=== PATIENT | male | born 1980 | race Caucasian/White ===

== ENCOUNTER 2018-12-12 18:26 | Emergency (ER) | payer SELFPAY ==
[~2018-12-12] VITALS: Ht 175.3 cm; Wt 65.8 kg
--- NOTE | 2018-12-12 18:57 | Emergency Room Report ---
History of Present Illness General Chief Complaint: Lower Extremity Injury Source: Patient Present Illness HPI 38-year-old male with no symptom past medical history brought in by [employer] for medical clearance. Patient reports of several days of bilateral feet pain and skin peeling. Denies fever, chills, shortness of breath, palpitation, abdominal pain, nausea vomiting. Eczema and ulceration of both feet noted turning into cellulitis. Patient will be treated with Rocephin and ibuprofen. Send and cleared to go to retirement Keflex and ibuprofen. Allergies: Coded Allergies: No Known Allergies (Unverified , 12/12/18) Patient History Past Medical History: see triage record Past Surgical History: unable to obtain Pertinent Family History: none Immunizations: UTD Reviewed Nursing Documentation: PMH: Agreed; PSxH: Agreed Nursing Documentation-PMH Past Medical History: No History, Except For History Of Psychiatric Problem: Yes - bipolar Review of Systems All Other Systems: negative except mentioned in HPI Physical Exam Vital Signs Date Time Temp Pulse Resp B/P (MAP) Pulse Ox O2 Delivery O2 Flow Rate FiO2 12/12/18 18:34 98.1 104 19 126/70 (88) 93 Room Air Sp02 EP Interpretation: reviewed, normal General Appearance: no apparent distress, alert, GCS 15, non-toxic, other - Disheveled Head: normocephalic, atraumatic Eyes: bilateral eye normal inspection, bilateral eye PERRL ENT: normal ENT inspection, hearing grossly normal, normal pharynx, no angioedema Neck: full range of motion, supple, thyroid normal, no meningismus, supple/symm /no masses Respiratory: chest non-tender, lungs clear, normal breath sounds, no rhonchi, no retraction, no wheezing, speaking full sentences Cardiovascular #1: regular rate, rhythm, no edema, no murmur, normal capillary refill Cardiovascular #2: 2+ dorsalis pedis (R), 2+ dorsalis pedis (L) Gastrointestinal: normal bowel sounds, non tender, soft, non-distended, no guarding, no rebound Rectal: deferred Genitourinary: no CVA tenderness Musculoskeletal: gait/station normal, normal range of motion, non-tender, no calf tenderness Neurologic: alert, oriented x3, responsive, motor strength/tone normal, sensory intact, speech normal Psychiatric: judgement/insight normal, memory normal, mood/affect normal, no suicidal/homicidal ideation Skin: other - Cellulitis bilateral feet Lymphatic: no adenopathy Medical Decision Making PA Attestation All my diagnosis and treatment plans were reviewed ad discussed with my supervising physician Dr. Barrios Diagnostic Impression: Primary Impression: Cellulitis of both feet ER Course 38-year-old male with no symptom past medical history brought in by [employer] for medical clearance. Patient reports of several days of bilateral feet pain and skin peeling. Denies fever, chills, shortness of breath, palpitation, abdominal pain, nausea vomiting. Eczema and ulceration of both feet noted turning into cellulitis. Patient will be treated with Rocephin and ibuprofen. Send and cleared to go to retirement Keflex and ibuprofen. Ddx considered but are not limited to : Cellulitis, DVT, superficial infection, abscess Vital signs: are WNL, pt. is afebrile H&PE are most consistent with: Cellulitis ORDERS: Keflex, ibuprofen ED INTERVENTIONS: Rocephin, ibuprofen DISCHARGE: At this time pt. is stable for d/c to home. Will provide printed patient care instructions, and any necessary prescriptions. Care plan and follow up instructions have been discussed with the patient prior to discharge. Patient was cleared to go to retirement, follow-up with primary care provider. If worsening symptoms return to the emergency room. Last Vital Signs Date Time Temp Pulse Resp B/P (MAP) Pulse Ox O2 Delivery O2 Flow Rate FiO2 12/12/18 18:34 98.1 104 19 126/70 (88) 93 Room Air Disposition: HOME, SELF-CARE Condition: Stable Scripts Ibuprofen (Ibu) 800 Mg Tablet 800 MG PO BID, #14 TAB Prov: Joy Chong 12/12/18 Cephalexin* (KEFLEX*) 500 Mg Capsule 500 MG ORAL EVERY 6 HOURS for 7 Days, #28 CAP Prov: Joy Chong 12/12/18 Patient Instructions: Cellulitis, [id number] Joy Chong Dec 12, 2018 18:56
[2018-12-12] MEDS ORDERED: CEPHALEXIN500 MG ORAL (19:00)
[2018-12-12] MEDS ORDERED: Lidocaine 1% MPF 10mg/ml 5ml INJ ONE (19:00)
[2018-12-12] MEDS ORDERED: IBU800 MG PO (19:00)
[2018-12-12] MEDS ORDERED: cefTRIAXone 1 GM in NS 55 ML IVPB ONE (19:00)
--- NOTE | 2018-12-12 19:20 | NUR ---
ED Nurse Note:pt. was medicaly cleared by [facility] ,he was given meds, then [employer] officer received d/c insytructions with prescriptions and he was taken in custody
[2018-12-12 19:28] VITALS: BP 126/70
== END 2018-12-12 19:28 | disposition home or self-care (01) ==
LOC: EMR 18:53
DX: L03.116 Cellulitis of left lower limb (principal); L03.115 Cellulitis of right lower limb; M25.572 Pain in left ankle and joints of left foot; M25.571 Pain in right ankle and joints of right foot; F31.9 Bipolar disorder, unspecified; L30.9 Dermatitis, unspecified
CPT/HCPCS: 96372; 96374; 99284; J0696